=== PATIENT | female | born 1965 | race Caucasian/White ===

== ENCOUNTER 2024-08-02 06:12 | Inpatient (IN) | payer OTHER, SELFPAY ==
[2024-07-28 10:25] VITALS: BMI 22.9
[2024-07-28 10:33] LABS: % Basophils 0.5 % (0-2); % Eosinophils 1.5 % (0-6); % Immature Granulocytes 0.2 % (0-0.5); % Lymphocytes 19.9 % (20.5-51.1); % Monocytes 5.3 % (1.7-9.3); % Neutrophils 72.6 % (42.2-75.2); Absolute Basophils 0.1 10^3/uL (0-0.2); Absolute Eosinophils 0.1 10^3/uL (0-0.7); Absolute Lymphocytes 1.8 10^3/uL (1.2-3.4); Absolute Monocytes 0.5 10^3/uL (0.1-0.6); Absolute Neutrophils 6.6 10^3/uL (1.4-6.5); Hemoglobin 13.1 g/dL (12.0-16.0); Mean Corp Hgb Conc. 35.4 g/dL (33.0-37.0); Mean Corpuscular Hgb 36.2 pg (27.0-31.0); Mean Corpuscular Volume 102.2 fL (81.0-99.0); Mean Platelet Volume 9.1 fL (7.4-10.4); Nucleated Red Blood Cells % 0 %; Platelet Count 295 10^3/uL (130-400); Red Blood Cell Count 3.62 10^6/uL (4.20-5.40); Red Cell Dist. Width 13.4 % (11.5-14.5); White Blood Cell Count 9.1 10^3/uL (4.8-10.8)
[2024-07-28 11:05] LABS: Blood Urea Nitrogen 8 mg/dl (7-17); Calcium 9.6 mg/dl (8.4-10.2); Carbon Dioxide 27 mmol/L (22-30); Chloride 107 mmol/L (98-107); Estimated Creatinine Clearance 95 ml/min; Glucose 88 mg/dl (70-99); Potassium 3.8 mmol/L (3.5-5.1); Sodium 142 mmol/L (135-145); eGFR > 60.00
[2024-07-28 11:09] LABS: APTT 32.7 Sec (23.4-35.0); INR 0.96; PT 13.3 Sec (11.4-14.6)
[2024-08-02] VITALS (23 sets, daily range): BP systolic 95–153; BP diastolic 60–94
[2024-08-02] MEDS: PERIDEX 0.12% ORAL RINSE 15 ML PO (07:14)
[2024-08-02] MEDS: BACTROBAN NASAL 1 GRAM NASAL (07:14)
[2024-08-02] MEDS: NSS 500 IV (07:15)
--- NOTE | 2024-08-02 07:35 | W.SUR.PREOP ---
Pre-Operative Surgical Note
-
I have examined this patient prior to the performance of the scheduled procedure.
The patient's condition is unchanged from the time of the current History and
Physical and the patient is able to undergo the scheduled procedure.
[2024-08-02 08:30] LABS: ACT-LR - POC 290 Seconds (116-155)
[2024-08-02 09:33] LABS: ACT-LR - POC 242 Seconds (116-155)
[2024-08-02] MEDS: DILAUDID 0.25 MG IV ×2 (10:23→10:42)
[2024-08-02 10:46] LABS: Blood Urea Nitrogen 10 mg/dl (7-17); Calcium 8.4 mg/dl (8.4-10.2); Carbon Dioxide 26 mmol/L (22-30); Chloride 113 mmol/L (98-107); Estimated Creatinine Clearance 95 ml/min; Glucose 118 mg/dl (70-99); Potassium 3.4 mmol/L (3.5-5.1); Sodium 141 mmol/L (135-145); eGFR > 60.00
[2024-08-02] MEDS: NSS 1000 IV (11:27)
--- NOTE | 2024-08-02 11:35 | CON.INTV ---
Consultation
Consultation Request
Date/Time Consultation Requested: 08/02/2024941
Date/Time Consultation Performed: 08/02/2024 - 1004
Requesting Provider: KILO Nevarez
Performing Provider: Dr. Betts
Reason for Consultation: s/p aortoiliac stent grafting with left iliac limb extension to EIA
Medical History
-
Chief Complaint: Elective lower extremity vascular procedure due to severe PAD
History of Present Illness:
58-year-old female active smoker with a past medical history of peripheral arterial occlusive disease with aortoiliac disease, GERD, history of FL and history of vulvar cancer who presents for elective lower extremity vascular intervention. Patient
known to the vascular surgery service with last visit on 07/04/[address] Figueredo. Patient has known calcified aortic occlusive disease at the aortic bifurcation and involving the common iliac arteries bilaterally, with focal occlusion at the left
common iliac artery with distal reconstitution. She has debilitating left lower extremity claudication and is interested in an intervention. Vascular intervention was discussed in detail including its risks and benefits and the patient agreed to
this procedure. Today she underwent intravascular lithotripsy with an aortoiliac stent graft and left iliac limb extension to external iliac artery using an Ovation stent graft. There were no complications, EBL was approximately 25 cc and she was
transferred to the ICU postoperatively with Science Education Professor services consulted for additional management/recommendations.
Patient arrived to the CVICU at 11:25 AM on 08/02/2024. When I saw the patient she was resting in bed in no acute distress with family members at bedside including her , Jeff, and daughter, Byron. Heart rate 96, BP 141/80 and saturating 97%
on room air. She currently denies pain, shortness of breath, BARRETO, nausea, fevers or chills. She is continue to smoke, currently 0.5 PPD.
PMHx: PAD, GERD, history of FL, vulva cancer
PSHx: Right-sided tarsal tunnel decompression (12/2011), back surgery, tonsillectomy
Past Medical History
Past Medical History: Other (Above as per HPI)
Past Surgical History: Other (Above as per HPI)
Social History
Tobacco: Smoker (Currently smoking 0.5 PPD with 11-[id number]-[id number] history (1 PPD x 20 years, 0.5 PPD x 10 years))
Alcohol: None
Drug: None
Personal:
Living: With Family (=Jeff)
Family History
Family History: CAD (Maternal grandmother) and Other (Father: Crohn's disease, from blood clot in the heart; Mother: dementia)
Allergies / Home Medications
Allergies
Allergy/AdvReac Type Severity Reaction Status Date / Time
No Known Allergies Allergy Verified 07/26/24 09:54
Home Medications
�Medication �Instructions �Recorded �Confirmed �Last Taken �Type
acetaminophen 500 mg capsule 500 mg PO Q6H PRN pain 07/26/24 07/26/24 Unknown History
aspirin 81 mg tablet 81 mg PO DAILY Blood Clot 07/26/24 08/02/24 08/02/24 05:00 History
Prevention/Tx
atorvastatin 40 mg tablet 40 mg PO DAILY High Cholesterol 07/26/24 08/02/24 08/01/24 20:00 History
cilostazol 50 mg tablet 50 mg PO BID Blood Clot 07/26/24 08/02/24 08/02/24 05:00 History
Prevention/Tx
clopidogrel 75 mg tablet 75 mg PO DAILY Blood Clot 07/26/24 08/02/24 08/02/24 05:00 History
Prevention/Tx
isosorbide mononitrate 30 mg 30 mg PO DAILY Blood Pressure 07/26/24 08/02/24 08/02/24 05:00 History
tablet,extended release 24 hr
pantoprazole 40 mg tablet,delayed 40 mg PO DAILY Gastrointestinal 07/26/24 08/02/24 08/02/24 05:00 History
release Issue
metoprolol tartrate 25 mg tablet 12.5 mg PO BID Blood Pressure 08/02/24 08/02/24 08/01/24 History
Review of Systems
-
History Source: Patient
All other systems: Negative unless noted
Vitals / Labs / Diagnostic Testing
Vital Signs
Temp Pulse Resp BP Pulse Ox
98.8 F 90 14 116/78 98
08/02/24 17:00 08/02/24 17:00 08/02/24 17:00 08/02/24 17:00 08/02/24 17:00
Lab Data
08/02/24 10:10
08/02/24 10:10
Diagnostic Testing:
Physical Exam
-
HEENT: Normocephalic, Anicteric and Moist Mucous Membranes
Cardiovascular: S1/S2 and Peripheral Edema (negative)
Respiratory: Wheeze (negative), Rales (negative), Rhonchi (negative) and Non-Labored Respirations
GI: Soft, Non Distended, Non Tender and Normal Bowel Sounds
Neurology: AO x 3 and Tremors (negative)
Skin: Warm and Dry
General: Respiratory Distress (negative), Comfortable, Fever (negative) and Chills (negative)
Assessment
-
Assessment: 58-year-old female active smoker with a past medical history of peripheral arterial occlusive disease with aortoiliac disease, GERD, history of FL and history of vulvar cancer who presents for elective lower extremity vascular
intervention. Patient known to the vascular surgery service with last visit on 07/04/[address] Figueredo. Patient has known calcified aortic occlusive disease at the aortic bifurcation and involving the common iliac arteries bilaterally, with focal
occlusion at the left common iliac artery with distal reconstitution. She has debilitating left lower extremity claudication and is interested in an intervention. Vascular intervention was discussed in detail including its risks and benefits and
the patient agreed to this procedure. Today she underwent intravascular lithotripsy with an aortoiliac stent graft and left iliac limb extension to external iliac artery using an Ovation stent graft. There were no complications, EBL was
approximately 25 cc and she was transferred to the ICU postoperatively with Science Education Professor services consulted for additional management/recommendations.
Chronic conditions PATENT SEARCHER: PAD, GERD, history of FL, vulva cancer
Impression:
#Calcified aortoiliac occlusive disease with debilitating left lower extremity claudication s/p intravascular orthotripsy to aortic bifurcation and bilateral common iliac artery stenoses, aortoiliac stent grafting and left iliac limb extension to
external iliac artery using 10 mm x 80 mm Ovation stent graft (POD #0)
#Acute anemia likely due to above
#Hypokalemia (mild)
#Tobacco use disorder (48-advf-vmiy Hx, currently smokes 0.5PPD)
#Minor right hemidiaphragm elevation seen on CXR from 07/28/2024
#GERD
#History of FL
Plan:
Postoperative surgical intensive care unit monitoring
Supplemental oxygen as needed to maintain SpO2 >90-94%
prn nebulized bronchodilators
Incentive spirometry encouraged 10x per hour for at least 4 hrs a day
Aspiration precautions
Pain control
Neuro and vascular checks per protocol
Maintain MAP>65
Replete electrolytes with K>4, Mg>2
Maintain euglycemia with goal BG 140-180
Vascular surgery following-correspondence and operative notes reviewed
Transfuse blood products as needed to keep Hb>7g/dL, and plt>50k (given post-operative status)
Although she has a 28-ewrk-rusy smoking history and currently smokes 0.5 PPD, she denies having any shortness of breath or cough or exercise intolerance. Denies inhaler use unless she is sick. Given that she is asymptomatic, no need for outpatient
pulmonary follow-up although given her age and smoking Hx, she should obtain annual LDCT chest monitoring for lung cancer screening. I will review this with her and if she wants, she can certainly see us in the [facility] office for this otherwise she
can obtain annual LDCT imaging for lung cancer screening through her PCP.
DVT prophylaxis
Early nutrition
Early mobilization
Critical care statement: A total of 41 minutes of critical care time was provided for this patient today. This includes management of unstable vital signs, evaluation of the patient at bedside, reviewing the patient's pertinent medical records
including radiographs, microbiology, laboratory evaluations, and discussion with primary team, consultants, pharmacy, nutrition, physical therapy, case management, charge nurse, critical care nursing, and respiratory therapy.
[2024-08-02 11:42] LABS: Hematocrit 30.3 % (37.0-47.0); Hemoglobin 10.5 g/dL (12.0-16.0); Mean Corp Hgb Conc. 34.7 g/dL (33.0-37.0); Mean Corpuscular Volume 103.8 fL (81.0-99.0); Mean Platelet Volume 9.4 fL (7.4-10.4); Platelet Count 220 10^3/uL (130-400); Red Blood Cell Count 2.92 10^6/uL (4.20-5.40); Red Cell Dist. Width 13.9 % (11.5-14.5); White Blood Cell Count 7.7 10^3/uL (4.8-10.8)
--- NOTE | 2024-08-02 12:00 | PTCARENOTE ---
Pt arrived to CVICU at 1125. Pt is awake and oriented. Pt remains drowsy but easily arousable. Pt SR with HR 84. BP 134/93 MAP 105. Pulse oximetry 94% on room air. Bowel sounds hypoactive. Temp sensing Figueredo in place, Figueredo care completed. Bilateral
groin sites approximated with surgical adhesive and EAMON. Bilateral groins soft nontender. Bilateral dorsalis pedis and posterior tibial pulses all present with Doppler. Right posterior tibial faint but audible with Doppler. NSS @ 80ml/hr infusing
per order.
--- NOTE | 2024-08-02 12:20 | CM ---
Reviewed chart. Met with Mrs. Severino to review discharge plans. She states prior to admission she resides with her spouse, son and daughter in a two story home with two step to enter. She states she has a full flight of steps to get to
bedroom/full bathroom. She states she has a powder room on the first floor. She states prior to admission she was independent with ambulation and adls. She states she does not have any DME in the home. She states she has a prescription plan and
uses [facility]. Medical work-up in progress. The discharge plan is to return home with her family when medically stable.
--- NOTE | 2024-08-02 13:54 | OR.RPT ---
Operative Report
Operative Report
Date of Operation: 08/02/2024
Pre Op Diagnosis:
1. Debilitating lower extremity claudication
2. Heavily calcified aortoiliac occlusive disease
Post Op Diagnosis:
1. Debilitating lower extremity claudication
2. Heavily calcified aortoiliac occlusive disease
Procedure:
1. Intravascular lithotripsy to aortic bifurcation and BILATERAL common iliac artery stenoses (9 mm x 30 mm L6 shockwave right; 10 mm x 30 mm L6 shockwave left)
2. Aortoiliac stent grafting with Endologix AFX device (22 x 40/13 x 40 AFX2 device)
3. Left iliac limb extension to external iliac artery (10 mm x 80 mm Ovation stent graft)
4. Aortoiliac arteriogram
5. Ultrasound-guided BILATERAL common femoral artery percutaneous access
6. Pro-glide closure of BILATERAL common femoral artery access
Surgeon: Usman Figueredo III, MD
Pharmaceutical Salesperson: Tomasa Breen MD PGY1
Anesthesia: General
Complications: None
Estimated Blood Loss: 25 cc
History and Indications for Procedure: 58-year-old female with debilitating lower extremity claudication. She was found to have heavily calcified aortoiliac occlusive disease. She was brought to the operating room for endovascular revascularization
Procedure in Detail: Precious Severino was correctly identified and placed supine on the operating table. After adequate induction of anesthesia the abdomen, pelvis and bilateral groins were positioned, prepped and draped in the usual sterile
fashion. Preoperative antibiotics were administered. A timeout procedure was performed with the nursing and anesthesia staff confirming the patients identity as well as the nature and laterality of the procedure.
Under ultrasound guidance, bilateral femoral artery sheath access was obtained. The arteries were patent. A pre-close technique was performed on the left femoral artery access with 2 offset Proglide closure devices. The sutures were secured and
tucked under surgical towels for use at the end of the case. A 7 Fr sheath was placed into the right femoral access. An 8 Fr sheath was placed into the left femoral access. The patient was systemically heparinized.
From the right femoral access a [employer] AS[employer] wire was advanced into the abdominal aorta. A marker pigtail catheter was then placed for angiographic purposes. An aortogram was performed. The accessory left renal artery origin was identified. The
inferior mesenteric artery origin was identified. The calcified and occluded left common iliac artery segment was identified. The right common iliac artery had a calcified stenosis at its origin but was patent distal to this. Both internal iliac
arteries appeared to be occluded.
Retrograde from the left femoral access under roadmap guidance I brought a Glidewire and a Quickcross catheter to the point of calcified occlusion in the left common iliac artery. We were able to carefully cross the occluded left common iliac
artery and gain access to the abdominal aorta with both the Glidewire and Quickcross catheter. We confirmed proper position in the true lumen of the aorta. I then exchanged out for a V18 wire bilaterally.
Due to the heavily calcified nature of the aortoiliac occlusive disease and in an effort to modify the calcium to achieve maximum luminal gain with endovascular intervention I elected to proceed with intravascular lithotripsy. A 9 mm x 30 mm
Shockwave balloon was placed across the stenosis under roadmap guidance on the right. A 10 mm x 30 mm shockwave balloon was advanced across the left iliac occlusive disease under roadmap guidance. Alternating rounds of lithotripsy pulse delivery
at sub-nominal pressure and angioplasty at nominal pressure was performed across the aortoiliac disease bilaterally. In between rounds of pulse delivery and angioplasty the balloons were deflated and repositioned under roadmap guidance. All 300
pulses were delivered from each balloon. Subsequent aortoiliac arteriogram demonstrated a significantly improved result following intravascular lithotripsy.
I exchanged out for a Lunderquist wire on the left and the tip was placed in the proximal descending thoracic aorta. Over the wire on the right I advanced the snare catheter into the abdominal aorta followed by the snare device.
Over the Lunderquist wire in the left femoral access I placed the AFX introducer sheath and advanced the radio-opaque sheath tip to the abdominal aorta. The contralateral limb wire of the AFX2 main body was introduced through the introducer sheath
and advanced to the aortic bifurcation. The 22-40/13-40 AFX2 bifurcated main body was then loaded onto the Lunderquist wire and advanced through the introducer sheath. The wire was snared from the contralateral side and pulled out the right femoral
access and the AFX2 main body was advanced until the limbs were above the aortic bifurcation. The entire system was then pulled down onto the aortic bifurcation. The main body was then deployed by pulling the control cord.
The contralateral limb was then deployed by pulling the yellow limb cover. Once this was completed I advanced a pigtail catheter over the contralateral limb wire until the tip was in contact with the wire lock. The contralateral limb was then pulled
as I advanced the pigtail up to release it from the wire lock. The wire was removed and the formed pigtail catheter was then advanced proximally.
The ipsilateral limb was deployed by pinning the inner core and retracting the AFX introducer sheath.
Bilateral 10 mm x 40 mm angioplasty balloons were used to post dilate the main body of the AFX device in a kissing fashion. Both iliac limbs were profiled in a similar manner with the 10 x 40 angioplasty balloons. The dilator for the AFX
introducer sheath was then replaced and the sheath advanced to the aortic bifurcation within the AFX main body.
A 10 mm x 80 mm Ovation iliac limb extension was placed on the left, extending into the external iliac artery. The iliac limb extension was profiled along its entire length with the 10 mm x 40 mm angioplasty balloon
A completion aortogram demonstrated an excellent technical result. There was brisk flow through the AFX main body stent and iliac limbs. No residual stenosis was identified. The accessory left renal artery was widely patent. The inferior
mesenteric artery was patent.
The Proglide sutures were secured on the left after removing the sheath and wire. A single Pro-glide closure device was used to obtain hemostasis in the right femoral artery access. Protamine was administered. Additional pressure was applied to
the puncture sites bilaterally for 10 minutes. Hemostasis was achieved bilaterally.
Sterile dressings were applied.
The patient tolerated the procedure well and was taken to the PACU in stable condition.
Attestation: I was present and responsible for the entire procedure
Signed:
Usman Figueredo III, MD
Vascular Surgery
[facility]
[2024-08-02] MEDS: DILAUDID 0.5 MG IV ×2 (14:22→18:42)
--- NOTE | 2024-08-02 15:43 | PTCARENOTE ---
Pt with complaints of right groin pain, PRN Dilaudid administered for relief. Bilateral groin sites remains approximated with surgical adhesive. Bilateral dorsalis pedis and posterior tibial pulses present with Doppler. Pt continues to received NSS
at 80ml/hr. Pt remains SR with HR 90's. BP 117/79 MAP 90. Pulse oximetry 97% on room air.
[2024-08-02] MEDS: HEPARIN 5000 UNITS SC ×2 (17:07→23:56)
[2024-08-02] MEDS: ROXICODONE 5 MG PO (17:08)
[2024-08-02] MEDS: KCL 20 MEQ PO (17:22)
--- NOTE | 2024-08-02 20:00 | PTCARENOTE ---
report received from previous RN, walking rounds done, assumed care of pt. pt in bed, AAOx4. pt reports pain in controlled at this time. VSS. NSR on monitor, HR 80s-90s. distal pulses palpable bilaterally, confirmed with doppler. bilateral groin
sites stable, CDI. IVFs infusing at ordered rate via PIV. POX 96% on room air. purewick catheter in place. see worklist for full assessment, VS, and interventions. pt resting comfortably w call light in reach.
[2024-08-02] MEDS: TOPROL XL 12.5 MG PO (20:09)
[2024-08-02] MEDS: PLETAL 50 MG PO (20:09)
[2024-08-03] VITALS (9 sets, daily range): BP systolic 92–151; BP diastolic 59–81
--- NOTE | 2024-08-03 | PTCARENOTE ---
no acute changes in assessment. VSS. NSR 80s-low 100s. POX 96-97% on room air. pt remains neurovascularly intact. bilateral LE's warm, distal pulses palpable, confirmed with doppler. pt resting between care.
[2024-08-03] MEDS: NSS IV (00:26)
[2024-08-03 06:05] LABS: Hematocrit 28.6 % (37.0-47.0); Mean Corpuscular Hgb 35.5 pg (27.0-31.0); Mean Corpuscular Volume 101.4 fL (81.0-99.0); Platelet Count 238 10^3/uL (130-400); Red Blood Cell Count 2.82 10^6/uL (4.20-5.40); Red Cell Dist. Width 13.6 % (11.5-14.5); White Blood Cell Count 13.2 10^3/uL (4.8-10.8)
[2024-08-03 06:17] LABS: INR 0.99; PT 13.4 Sec (11.4-14.6)
[2024-08-03 06:18] LABS: APTT 30.9 Sec (23.4-35.0)
[2024-08-03 06:30] LABS: Blood Urea Nitrogen 8 mg/dl (7-17); Calcium 8.4 mg/dl (8.4-10.2); Carbon Dioxide 24 mmol/L (22-30); Chloride 110 mmol/L (98-107); Estimated Creatinine Clearance 95 ml/min; Glucose 101 mg/dl (70-99); Magnesium 1.6 mg/dl (1.6-2.3); Potassium 3.3 mmol/L (3.5-5.1); Sodium 140 mmol/L (135-145); eGFR > 60.00
[2024-08-03] MEDS: TOPROL XL 12.5 MG PO (07:33)
[2024-08-03] MEDS: IMDUR (EXTENDED RELEASE) 30 MG PO (07:34)
[2024-08-03] MEDS: PLAVIX 75 MG PO (07:34)
[2024-08-03] MEDS: ASPIR LOW (ENTERIC COATED) 81 MG PO (07:34)
[2024-08-03] MEDS: PROTONIX 40 MG PO (07:35)
[2024-08-03] MEDS: PLETAL 50 MG PO (07:35)
[2024-08-03] MEDS: LIPITOR 40 MG PO (07:36)
[2024-08-03] MEDS: ROXICODONE 5 MG PO (07:36)
[2024-08-03] MEDS: KCL 40 MEQ PO (07:36)
[2024-08-03] MEDS: HEPARIN 5000 UNITS SC (07:36)
--- NOTE | 2024-08-03 08:00 | W.PN.VS ---
Today's Communication / Plan
-
Patient seen and examined at bedside with Neo Valentine M.D., below plan reviewed with attending.
Assessment/Plan
-
Assessment: 58-year-old female POD #1 Intravascular lithotripsy to aortic bifurcation and BILATERAL common iliac artery stenoses (9 mm x 30 mm L6 shockwave right; 10 mm x 30 mm L6 shockwave left), aortoiliac stent grafting with Endologix AFX device
(22 x 40/13 x 40 AFX2 device), left iliac limb extension to external iliac artery (10 mm x 80 mm Ovation stent graft), aortoiliac arteriogram, ultrasound-guided BILATERAL common femoral artery percutaneous access, pro-glide closure of BILATERAL
common femoral artery access
Plan:
Discontinue IV fluids
Continue neurovascular checks
OOB to chair with progression to ambulation as tolerated
Continue DAPT of aspirin 81 mg p.o. daily and Plavix 75 mg p.o. daily
Continue statin therapy
Pending patient progression likely discharge today
Subjective Data
-
Date of Service: August 03, 2024
Patient seen and examined at bedside, offers no complaints. Reports minimal to none postoperative pain at bilateral groins. Denies nausea, vomiting, fever, and chills. Reports tolerating p.o. diet.
Objective Data
-
Vital Signs
Temp Pulse Resp BP Pulse Ox
98.4 F 83 13 146/76 95
08/03/24 04:00 08/03/24 07:33 08/03/24 07:00 08/03/24 07:33 08/03/24 04:00
Intake and Output
08/02/24 08/03/24 08/04/24
06:59 06:59 06:59
Intake Total 1165 / 1165
Output Total 795 / 795
Balance 370 / 370
Intake:
IV fluids (Total) 1165 / 1165
NSS 1040 / 1040
normosol 125 / 125
Output:
Urine, Figueredo 495 / 495
Urine, Voided 300 / 300
Lab Results
08/03/24 05:52
08/03/24 05:52
Calcium 8.4 mg/dl (8.4-10.2) 08/03/24 05:52
Magnesium 1.6 mg/dl (1.6-2.3) 08/03/24 05:52
Physical Exam
-
No apparent distress, resting bed comfortably
No tachycardia
No dyspnea on room air
Abdomen flat, nondistended, nontender
Bilateral groin puncture site CDI, no evidence of hematoma, ulcer compartments soft, Exofin glue intact
Bilateral feet warm, with bilateral palpable DP pulse
--- NOTE | 2024-08-03 08:08 | W.PN.INTV ---
Today's Communication / Plan
Recommendations
Up OOB as tolerated
Encourage incentive spirometer
Pain control
Outpatient pulmonary office follow-up will be arranged for full PFTs given smoking history and to discuss LDCT chest for lung cancer screening
Patient being prepared for discharge home today. No additional recommendations at this time. [facility]/Pulmonary service will now sign off. Please reconsult if there are any additional questions/concerns, or if patient's respiratory status
deteriorates.
Assessment
-
Assessment: 58-year-old female active smoker with a past medical history of peripheral arterial occlusive disease with aortoiliac disease, GERD, history of MS and history of vulvar cancer who presents for elective lower extremity vascular
intervention. Patient known to the vascular surgery service with last visit on 07/04/[address] Figueredo. Patient has known calcified aortic occlusive disease at the aortic bifurcation and involving the common iliac arteries bilaterally, with focal
occlusion at the left common iliac artery with distal reconstitution. She has debilitating left lower extremity claudication and is interested in an intervention. Vascular intervention was discussed in detail including its risks and benefits and
the patient agreed to this procedure. Today she underwent intravascular lithotripsy with an aortoiliac stent graft and left iliac limb extension to external iliac artery using an Ovation stent graft. There were no complications, EBL was
approximately 25 cc and she was transferred to the ICU postoperatively with [facility] services consulted for additional management/recommendations.
Chronic conditions PRESS TECHNICIAN: PAD, GERD, history of MS, vulva cancer
Impression:
#Calcified aortoiliac occlusive disease with debilitating left lower extremity claudication s/p intravascular orthotripsy to aortic bifurcation and bilateral common iliac artery stenoses, aortoiliac stent grafting and left iliac limb extension to
external iliac artery using 10 mm x 80 mm Ovation stent graft (POD #1)
#Acute anemia likely due to above
#Hypokalemia (mild) - improved
#Tobacco use disorder ([id number] Hx, currently smokes 0.5PPD)
#Minor right hemidiaphragm elevation seen on CXR from 07/28/2024
#GERD
#History of MS
Plan:
Postoperative surgical intensive care unit monitoring
Supplemental oxygen as needed to maintain SpO2 >90-94%
prn nebulized bronchodilators
Incentive spirometry encouraged 10x per hour for at least 4 hrs a day
Aspiration precautions
Pain control
Neuro and vascular checks per protocol
Maintain MAP>65
Replete electrolytes with K>4, Mg>2
Maintain euglycemia with goal BG 140-180
Vascular surgery following-correspondence and operative notes reviewed
Transfuse blood products as needed to keep Hb>7g/dL, and plt>50k (given post-operative status)
Although she has a 44-[id number]-[id number] smoking history and currently smokes 0.5 PPD, she denies having any shortness of breath or cough or exercise intolerance. Denies inhaler use unless she is sick. Given that she is asymptomatic, no need for inhaler
therapy at this time. Given her age and smoking Hx, she should obtain annual LDCT chest monitoring for lung cancer screening. I reviewed this with her and she is amenable to following with us in the [facility] office -I will arrange for outpatient office
visit
DVT prophylaxis
Early nutrition
Early mobilization
Patient being prepared for discharge home today. No additional recommendations at this time. [facility]/Pulmonary service will now sign off. Thank you for allowing us to be involved in the care of this patient. Please reconsult if there are any
additional questions/concerns, or if patient's respiratory status deteriorates.
Total time spent today was 42 minutes for this encounter. Time includes reviewing laboratory test/imaging results, reviewing pertinent medical records, obtaining and reviewing medical history, performing an appropriate exam, ordering medications,
tests and procedures. Time also includes documentation of this encounter, coordinating patient care and communicating with other healthcare professionals. Total time does not include separately billed tests performed on this date of service.
Subjective Dataa
Subjective Data
Date of Service:
Date of Service: August 03, 2024
Chief Complaint: [facility] Follow Up
Subjective:
Patient seen and evaluated at bedside. Has groin pain, more on the left than the right. Feels tired today. Currently saturating 96% on room air with heart rate 90 and BP 122/79. She is eager to go home. Denies SOB, chest pain, nausea, fevers or
chills.
Review of Systems
General: Other (Negative unless mentioned above)
Objective Data
Data Reviewed
Vital Signs / I&O / Oxygen:
Vital Signs
Temp Pulse Resp BP Pulse Ox
98.3 F 89 18 146/76 96
08/03/24 08:00 08/03/24 09:00 08/03/24 09:00 08/03/24 07:33 08/03/24 08:00
Intake and Output
08/02/24 08/03/24 08/04/24
06:59 06:59 06:59
Intake Total 1165 / 1165 240 / 240
Output Total 795 / 795 200 / 200
Balance 370 / 370 40 / 40
SaO2 96
Physical Exam
General: Respiratory Distress (negative), Comfortable, Chills (negative) and Sweats (negative)
HEENT: Normocephalic and Anicteric
Cardiovascular: S1-S2 and Peripheral Edema (negative)
Respiratory: Wheeze (negative), Crackles (negative), Rhonchi (negative), Non-Labored Respirations and Stridor (negative)
GI: Soft, Non Distended, Non Tender and Normal Bowel Sounds
Neurology: AO x 3 and Tremors (negative)
Skin: Warm, Dry, Cyanosis (negative) and Jaundice (negative)
Labs/Micro/Reports
Lab Data
08/03/24 05:52
Laboratory Results
08/03/24
05:52
PT 13.4
INR 0.99
APTT 30.9
--- NOTE | 2024-08-03 10:40 | CM ---
Reviewed chart. Met with Mrs. Cash to review discharge plans. She states she feels well and maybe able to go home soon. She states her spouse and daughter will be home to assist in her care if needed. Prior to admission she resides with
her spouse, son and daughter in a two sto ry home with two steps to enter. She states she has a full flight of steps to get to bed room/full bathroom. She has a powder room on the first floor. Prior to admission she was independent with ambulation
and adls. She does not have any DME in the home. She has a prescription plan and uses [facility]. Medical work-up in progress. The discharge plan is to return home with her family when medically stable.
[2024-08-03 11:43] LABS: Potassium 3.6 mmol/L (3.5-5.1)
--- NOTE | 2024-08-03 11:46 | W.DS.TRANS ---
DC Summary - [employer]
-
Discharge Instructions:
Discharge Diagnosis/Procedures Aortoiliac stent grafting with Endologix AFX
device
Diet As tolerated
Activity No strenuous activity
Driving Restrictions No driving for 1 week
Bathing Restrictions OK to Shower
Others Tests Ultrasound appt: 08/25 @ 1pm
Instructions:
Stand-Alone Forms: Vascular Surg Discharge Instr
Changes to Home Medications: Yes
Discharge Medications:
DC Medications w/original date entered in [facility]
acetaminophen 500 mg capsule 500 mg PO Q6H PRN pain 07/26/24
aspirin 81 mg tablet 81 mg PO DAILY Blood Clot Prevention/Tx 07/26/24
atorvastatin 40 mg tablet 40 mg PO DAILY High Cholesterol 07/26/24
clopidogrel 75 mg tablet 75 mg PO DAILY Blood Clot Prevention/Tx 07/26/24
isosorbide mononitrate 30 mg tablet,extended release 24 hr 30 mg PO DAILY Blood Pressure 07/26/24
pantoprazole 40 mg tablet,delayed release 40 mg PO DAILY Gastrointestinal Issue 07/26/24
metoprolol tartrate 25 mg tablet 12.5 mg PO BID Blood Pressure 08/02/24
Home Medication Changes
stopped pletal
Pending Results: No
== END 2024-08-03 13:00 | disposition home or self-care (01) | DRG 269 ==
LOC: CVICU 06:12
PROVIDERS: Nurse Practitioner; ADMITTING PHYSICIAN Surgery Vascular Surgery; CONSULT PHYSICIAN Internal Medicine Critical Care Medicine; OTHER PHYSICIAN Internal Medicine Cardiovascular Disease; PRIMARYCARE PHYSICIAN Family Medicine
PROC: 06F Lower Veins, Fragmentation (ICD-10-PCS; 2024-08-02)
PROC: 04V03DZ Restriction of Abdominal Aorta with Intraluminal Device, Percutaneous Approach (ICD-10-PCS; 2024-08-02)
PROC: 06F Lower Veins, Fragmentation (ICD-10-PCS; 2024-08-02)
DX: I70.223 Atherosclerosis of native arteries of extremities with rest pain, bilateral legs (principal); I74.09 Other arterial embolism and thrombosis of abdominal aorta; I70.0 Atherosclerosis of aorta; E87.6 Hypokalemia; I70.8 Atherosclerosis of other arteries; K21.9 Gastro-esophageal reflux disease without esophagitis; F17.210 Nicotine dependence, cigarettes, uncomplicated; D64.9 Anemia, unspecified; I25.2 Old myocardial infarction; Z79.02 Long term (current) use of antithrombotics/antiplatelets; Z79.82 Long term (current) use of aspirin; Z85.44 Personal history of malignant neoplasm of other female genital organs; Z79.899 Other long term (current) drug therapy; Z82.49 Family history of ischemic heart disease and other diseases of the circulatory system
CPT/HCPCS: 36415; 37236; 71046; 80048; 83735; 84132; 85025; 85027; 85610; 85730; 93005; C1725; C1760; C1769; C1773; C1894; C2628; C9765; Q9967